=== PATIENT | female | born 1995 | race Hispanic/Latino ===

== ENCOUNTER 2018-02-09 03:28 | Inpatient (IN) | payer OTHER ==
[~2018-02-09] VITALS: Ht 160 cm; Wt 63.7 kg
[~2018-02-09 03:28] MED LIST: DEPO-PROVE150 MG/11 IM; NAPROSYN500 M1 PO; VITAMIN C500 M6 PO
--- NOTE | 2018-02-09 19:06 | Operative Report ---
Operative/Inv Procedure Report Surgery Date: 02/09/18 Name of Procedure: Laparoscopic ovarian cystectomy and conversion to exlap Pre-Operative Diagnosis: Ovarian cyst Post-Operative Diagnosis: Ovarian dermoid Estimated Blood Loss: 50ml to 100ml Surgeon/Director [employer]: Rolando BECKMAN,Ephraim Nova MD Anesthesia: general endotracheal tube Monitors: Per Anesthesiology IV Fluids: 1300 cc Implants: NA Urine Output: 200 cc Drains: NA Specimens: Ovarian cyst Peritoneal washings Microbiology: NA Complications: None Condition: Stable to RR Operative Indication: 22 year old female with new onset pelvic mass. On depoprovera for contraception. Noted to have Ca125 of 27. As mass was leading to bulk effects on patient decision was made for removal. Consent for laparoscopy obtained with potential conversion to exlap discussed. Risks of pain, bleeding, infection, damage to local organs, vte reviewed. Recurrence reviewed as well. Issues of future ectopic reviewed. Ample time for questions given and all questions answered. Operative/Procedure Note Note: Patient taken to OR and prepped in usual fashion. Time out done prior to procedure. Placed in dorsal lithotomy position and arms tucked. Yu placed and speculum placed so as to allow placement of HUMI. Once that placed attention was turned to abdomen. 5 cc of marcaine was injected into umbilicus and 11 blade was used to make incision in umbilicus. Veress needle used to obtain pneumoperitoneum. 15 mm of HG gas pressure achieved and 11 mm optiview scope placed under direct visualization with the below findings seen. One addition 11 mm was placed on the patients right side 2 x 2 cm away from the anterior iliac spine and done under visualization. A 5 mm port was placed in the LLQ 3x3 cm away from anterior iliac spine. Once both placed the cyst was opened and contents were sebum and mostly hair. An additional intracapsular cyst was seen. Hair and sebum were removed using an endopouch. There was skin tissue and additional hair that was too difficult to remove using the bag. Decision was made for exlap. A phannensteil incision was made and carried to the underlying layer of fascia. It was extended using bovie. The superior and inferior edges were dissected from underlying layer of muscle and peritoneum entered sharpy. HUMI was used to elevate the uterus and ovary. Ovary was brought to level of incision. Ovarian cystectomy was performed. Remainder of cyst was was bluntly and sharply removed. Ovary was closed with 3-0 vicryl in a running locked suture and paco used to provide local hemostasis. Abdomen was copiously irrigated with saline The two 11 mm port sites were closed with 0 vicryl on the fascia. The fascia was closed on the phannensteil incision after peritoneum was closed with 3-0 vicryl. The fascia on the former closed with 0 vicryl. Subcutaneous tissue closed with 3-0 plain and skin with 4-0 vicryl on a holland needle. The three port sites were closed with 3-0 vicryl. Bandages applied to the wound sites. Instrument and needle count correct x 2 HUMI removed and yu left in place for urine output monitoring. Pt extubated in the OR and taken to RR in stable condition. Patient informed of surgical findings and need for conversion to laparotomy. Findings Normal upper abdomen Uterus wnl Right ovary and tube wnl Left tube wnl 13 cm dermoid cyst with sebum, serous fluid, hair and teeth and skin. No peritoneal implants No endometriosis seen. No adhesions noted
[2018-02-09 21:22] VITALS: BP 116/72
[2018-02-10 06:22] VITALS: BP 114/58
--- NOTE | 2018-02-10 09:03 | PN- OBGYN ---
Surgical Brief Attending Note Brief Attending Note: Seen and evaluated Patient states she was out of bed to bathroom and pain noted. Voided already. Denies nausea nor vomiting. T98.2 and Vitals per record Lungs clear Abdomen soft and incisional tenderness. LSC port site dressings are clean and dry. Phannensteil incisional bandage removed and steristrips are intact. Neuro. Aox3. Motor and sensory grossly intact Extremity. No homans and no edema Pod#1 s/p LSC converted to laparotomy for ovarian dermoid with multiple elements and was too large for lsc removal. Clinically doing well however pain in my opinion not controlled. 1) Pain. Standing dose motrin and tylenol x 24 hours and breakthrough narcotics. Topical lidocaine patch. Reviewed expectations for pain control 2) Wound care instructions given and expectations reviewed. She may shower. 3) Advance to regular diet 4) Nutrition. Add vitamin c and MVI for wound healing. Add probiotics as was given antibiotics for SSI risk reduction. 5) VTE prophylaxis with alps and oob. 6) Plan for DC tomorrow with follow up in one week. Discussed short term disability for her. Appx 3-4 weeks depending on recovery. 7) Contraception. She is on depoprovera so no increase in RR of vte while on same.
[2018-02-10 14:22] VITALS: BP 102/58
[2018-02-10 21:33] VITALS: BP 122/61
[2018-02-11 06:24] VITALS: BP 114/62
[2018-02-11] MEDS ORDERED: OXYCODONE HCL5 M1 PO (09:24)
[2018-02-11] MEDS ORDERED: BISACODYL5 M1 PO (09:24)
[2018-02-11] MEDS ORDERED: TYLENOL325 M1 PO (09:24)
--- NOTE | 2018-02-11 09:34 | Surgical Discharge Summary ---
See Addendum Visit Information Visit Dates Admission Date: 02/09/18 Discharge Date: 02/11/18 History of Present Illness Chief Complaint: Ovarian cyst Medical History Blood Transfusion Hx: No Neurological: NONE EENT: NONE Cardiovascular: NONE Respiratory: NONE Gastrointestinal: NONE Hepatic: NONE Renal: NONE Musculoskeletal: NONE Psychiatric: NONE Endocrine: NONE Blood Disorders: NONE Cancer(s): NONE ROLL FILLER/Reproductive: NONE History of MRSA: No History of VRE: No Active VRE Infection: No History of CDIFF: No Isolation History: Standard Pneumonia Vaccine Status: Never received in past Influenza Vaccine Status Never received in past Tetanus Status: up to date Surgical History Pertinent Surgical History: Left ovarian cystectomy Psychosocial History Where Do You Live? Home Who Do You Live With? Patient/Self Services at Home: None What is Your Primary Language? Divehi Tobacco History: NA ETOH Use: denies use Illicit Drug Use History: NA Other Addictive Behavior: NA Review of Systems: No dyspnea No nausea No emesis Positive flatus Denies bowel movement Physical Exam: Aox3 NAD Lungs clear Abdomen mild distension and incisional tenderness. 3 port LSC sites are clean and intact. Phannensteil incision is intact and clean. No vaginal bleeding Neuro. Motor and sensory intact grossly Extremity. No homans and no edema No cvat Hospital Course Course Attending Physician: Rolando BECKMAN,Ras Primary Care Physician: Patient Has No Primary Care Dr Hospital Course: S/p LSC ovarian cystectomy however unable to remove large mass lsc due to it being significantly solid. Converted to exlap. Patient did well and was kept for pain control. Tolerating diet and ambulating without assistance. Complications: None Allergies: Coded Allergies: No Known Allergies (01/25/18) Significant Procedures: LSC converted to Exlap and ovarian cystectomy on the left. Pertinent Lab Results: Rh positive Disposition Summary Disposition Principal Diagnosis: Ovarian Dermoid cyst Additional Diagnosis: None Discharge Disposition: home or self care Discharge Instructions General Discharge Information Code Status: Full Code Patient's Diet: Regular Patient's Activity: As tolerated Follow-Up Instructions/Appts: Follow up Monday the 16 of February Medications at Discharge Discharge Medications: Continue taking these medications: Naproxen (Naprosyn) 500 MG TABLET 1 Tablet ORAL TWICE DAILY as needed for pain Qty = 60 Ascorbate Calcium (Vitamin C) (Unknown Strength) TABLET Unknown Dose ORAL DAILY Start taking the following new medications: Oxycodone HCl (Oxycodone HCl) 5 MG TABLET 5 Milligram ORAL EVERY SIX HOURS as needed for PAIN SCALE 7-10 (SEVERE) Qty = 10 No Refills Acetaminophen (Tylenol) 325 MG TABLET 975 Milligram ORAL EVERY 8 HOURS Qty = 20 No Refills Instructions: Daily use not to exceed 4 grams per day. Bisacodyl (Bisacodyl) 5 MG TABLET. 5 Milligram ORAL DAILY Qty = 5 No Refills Copies To: Rolando BECKMAN,Ras Attending MD Review Statement Attending Statement Attending MD Statement: examined this patient, discussed w/nursing Attending Assessment/Plan: GI. Discussed nutritional goals for wound healing. Discussed benefits of vitamins for same. Ileus information provided. Pain control. Continue on binder daily. Tylenol q8 hours x 5-7 days. Continue on Naprosyn BID x 5-7 days. Narcotics bid x 2-3 days and then as needed. Lidocaine patch 4% as OTC. VTE risk reduction with avoidance of dehydration and ambulation Contraception. She is s/p recent dose of Depoprovera. Wound care instructions and expectations reviewed (itching, drainage and cleaning) Dc home today and Follow up as outlined
== END 2018-02-11 10:38 | DRG 513 ==
LOC: STS 03:28 → PACUH 18:56 → 2NB 18:56 → ENRESERV 19:15 → ENTRNSPT 20:05 → EDTRNSPTSTS 20:11 → EDTRNSPT 20:11 → 2NB 20:23 → CMPTRNSPT 20:26 → 2NB 02-11 10:38
PROC: 0U914ZZ Drainage of Left Ovary, Percutaneous Endoscopic Approach (ICD-10-PCS; principal; 2018-02-09)
PROC: 0UB10ZZ Excision of Left Ovary, Open Approach (ICD-10-PCS; principal; 2018-02-09)
DX: D27.1 Benign neoplasm of left ovary (principal)
CPT/HCPCS: 2NBSP; 6040; 81025; 88305; 93005; 93010; G0378; J0131; J0690; J1885; J3490; J7120